=== PATIENT | female | born 1980 | race Caucasian/White ===

== ENCOUNTER 2023-03-08 06:13 | Emergency (ER) | payer OTHER ==
[2023-03-08 06:42] VITALS: BP 176/107; O2SAT 100
--- NOTE | 2023-03-08 07:15 | ED Physician Documentation ---
History of Present Illness - Stated complaint Stated Complaint: BACK PX - Chief complaint Chief Complaint: Back Pain - History obtained from History obtained from: Patient - Additonal information Additional information: The patient comes to the emergency department chief complaint of right flank pain that started suddenly a couple of hours ago. She states that it started in her right CVA area and then wrapped around to her right lower quadrant. She states she was nauseated but did not vomit. The pain became very intense but she states that on the way here, it completely resolved. The patient denies any dysuria. No visible blood in her urine. No change in her bowel movements. No vaginal symptoms. No fevers or chills. She otherwise feels fine. She has had a history of kidney stones previously and states it feels the same. She is completely asymptomatic now. PD PAST MEDICAL HISTORY - Past Medical History Past Medical History: Yes Cardiovascular: Hypertension Endocrine/Autoimmune: Type 2 diabetes - Past Surgical History Past Surgical History: No - Present Medications Home Medications: Ambulatory Orders Medication Instructions Recorded Confirmed Clindamycin Phosphate [Cleocin T] 03/08/23 03/08/23 Losartan/Hydrochlorothiazide 1 each PO DAILY 03/08/23 03/08/23 [Hyzaar 50-12.5 Tablet] Omeprazole 20 mg PO DAILY 03/08/23 03/08/23 Pravastatin Sodium 20 mg PO DAILY 03/08/23 03/08/23 Semaglutide [Ozempic] 1 mg SQ UD 03/08/23 03/08/23 Spironolactone [Aldactone] 25 mg PO DAILY 03/08/23 03/08/23 Tretinoin 0.025 gm TP HS 03/08/23 03/08/23 metFORMIN [Glucophage] 500 mg PO DAILY 03/08/23 03/08/23 methocarbamoL [Methocarbamol] 500 mg PO DAILY 03/08/23 03/08/23 - Allergies Allergies/Adverse Reactions: Allergies Allergy/AdvReac Type Severity Reaction Status Date / Time Penicillins Allergy Unknown Verified 03/08/23 06:36 - Social History Does the pt smoke?: No Smoking Status: Former smoker Does the pt drink ETOH?: No Does the pt have substance abuse?: No PD ED PE NORMAL - Vitals Vital signs reviewed: Yes - General General: Alert and oriented X 3, No acute distress, Well developed/nourished - HEENT HEENT: Atraumatic, PERRL, EOMI, Moist mucous membranes - Neck Neck: Supple, no meningeal sign - Cardiac Cardiac: RRR, No murmur - Respiratory Respiratory: No respiratory distress, Clear bilaterally - Abdomen Abdomen: Soft, Non distended, Other (Very mild right lower quadrant tenderness, no rebound or guarding.) - Derm Derm: Normal color, Warm and dry, No rash - Extremities Extremities: No deformity - Neuro Neuro: Alert and oriented X 3 - Psych Psych: Normal mood, Normal affect Results - Vitals Vitals: Oxygen O2 Source Room air - Labs Labs: Laboratory Tests 03/08/23 07:00 Urine Color YELLOW Urine Clarity CLEAR Urine pH 5.5 Ur Specific [place] >=1.030 H Urine Protein 30 H Urine Glucose (UA) NEGATIVE Urine Ketones NEGATIVE Urine Occult Blood LARGE H Urine Nitrite NEGATIVE Urine Bilirubin NEGATIVE Urine Urobilinogen 0.2 (NORMAL) Ur Leukocyte Esterase NEGATIVE Urine RBC TNTC H Urine WBC 0-3 Ur Squamous Epith Cells FEW Squamous Urine Bacteria Few Urine Casts 3-5 Hyaline Casts Urine Mucus Moderate Strands Ur Microscopic Review INDICATED Urine Culture Comments NOT INDICATED Urine HCG, Qual NEGATIVE PD Medical Decision Making - ED course Complexity details: reviewed results, re-evaluated patient, considered differential, d/w patient, d/w family ED course: I discussed with the patient that given the nature of her symptoms, it is very likely that she had a kidney stone, although I cannot entirely say this with certainty. Given that the patient is completely asymptomatic now, I gave her the option to have a full workup with urinalysis and CT or no workup at all and adopt a [id number] approach with return precautions. The patient ultimately decided that she would like to just have a urinalysis done but skip the CT scan for now. UA showed blood, but no signs of infection. The pt had remained asymptomatic, and was informed of her results, and still does not want CT. We have discussed the usual indications for follow-up and return. Departure - Departure Disposition: 01 Home, Self Care Clinical Impression: Back pain Qualifiers: Back pain location: low back pain Chronicity: acute Back pain laterality: right Sciatica presence: without sciatica Qualified Code(s): M54.50 - Low back pain, unspecified Condition: Stable Instructions: ED Neck Back Pain General, ED Stone Renal W Colic Comments: Your urinalysis shows quite a bit of blood, but no signs of infection. This does the suspicion for the passage of a stone. As we discussed, you may have a loll in your pain and then a recurrence if the stone hits a tight spot, such as the entrance to the bladder. If you wish to get imaging done at that time, you may. Otherwise, please drink plenty of fluids to stay hydrated and plan to follow-up with your primary doctor. Discharge Date/Time: 03/08/23 07:43
[2023-03-08 07:19] LABS: BILIRUBIN,URINE NEGATIVE (NEGATIVE); GLUCOSE, URINE (UA) NEGATIVE (NEGATIVE); KETONES,URINE (UA) NEGATIVE (NEGATIVE); LEUKOCYTE ESTERASE, URINE NEGATIVE (NEGATIVE); NITRITE,URINE NEGATIVE (NEGATIVE); OCCULT BLOOD,URINE LARGE (NEGATIVE); PH,URINE 5.5 PH (5.0-7.5); PROTEIN,URINE 30 mg/dL (NEGATIVE); UROBILINOGEN,URINE 0.2 (NORMAL) E.U./dL (NORMAL)
[2023-03-08 07:20] LABS: CLARITY,URINE CLEAR (CLEAR); HCG UR QUAL NEGATIVE
[2023-03-08 07:33] LABS: RBC,URINE TNTC /HPF (0-5); SQUAMOUS EPITHELIAL CELL,UR FEW Squamous (<= Few); WBC,URINE 0-3 /HPF (0-5)
[2023-03-08 07:34] LABS: BACTERIA,URINE Few /HPF (None Seen); CASTS, URINE 3-5 Hyaline Casts /LPF; MUCUS,URINE Moderate Strands
== END 2023-03-08 07:43 | disposition home or self-care (01) ==
LOC: ED 06:13
DX: M54.50 Low back pain, unspecified (principal); I10 Essential (primary) hypertension; E11.9 Type 2 diabetes mellitus without complications; Z79.84 Long term (current) use of oral hypoglycemic drugs; Z87.891 Personal history of nicotine dependence
CPT/HCPCS: 81001; 81003; 81025; 87086; 99283